=== PATIENT | male | born 1940 | race Caucasian/White ===

== ENCOUNTER → 2016-09-30 | Outpatient (CLI) | payer MEDICARE | LOC: RAD 08:20 | PROVIDERS: ATTEND Family Medicine | DX: I74.4 Embolism and thrombosis of arteries of extremities, unspecified (principal) | CPT/HCPCS: 76775 ==

== ENCOUNTER → 2017-03-20 | Outpatient (CLI) | payer MEDICARE ==
--- NOTE | 2017-03-20 12:37 | RADIOLOGY REPORT (SQ) ---
EXAM DESCRIPTION: VENOUS BILATERAL LOWER COMPLETED DATE/TIME: 03/20/2017 11:47 am REASON FOR STUDY: BLE EDEMA R60.9 EDEMA, UNSPECIFIED COMPARISON: Abdominal aorta ultrasound 09/30/2016 TECHNIQUE: Dynamic and static cai scale and color images acquired of both lower extremity venous sy stems. Selected spectral images acquired with additional compression and augmentation maneuvers. Imag es stored on PACS. LIMITATIONS: None. FINDINGS: RIGHT LEG COMMON FEMORAL AND FEMORAL: Normal phasicity, compression and augmentation. No visualized echogenic m aterial on cai scale. No defects on color images. POPLITEAL: Normal compression and augmentation. No visualized echogenic material on cai scale. No de fects on color images. CALF VESSELS: Normal compression and augmentation. No visualized echogenic material on cai scale. No defects on color image. GSV AND SSV: Normal compression. No visualized echogenic material on cai scale. No defects on color images. ANY DEEP VENOUS INSUFFICIENCY: Not evaluated. ANY EVIDENCE OF POPLITEAL CYST: No. OTHER: No other significant finding. LEFT LEG COMMON FEMORAL AND FEMORAL: Normal phasicity, compression and augmentation. No visualized echogenic m aterial on cai scale. No defects on color images. POPLITEAL: Normal compression and augmentation. No visualized echogenic material on aci scale. No de fects on color images. CALF VESSELS: Normal compression and augmentation. No visualized echogenic material on cai scale. No defects on color images. GSV AND SSV: Normal compression. No visualized echogenic material on cai scale. No defects on color images. ANY DEEP VENOUS INSUFFICIENCY: Not evaluated. ANY EVIDENCE POPLITEAL CYST: No. OTHER: No other significant finding. IMPRESSION: NO EVIDENCE DVT OR SVT IN EITHER LEG. Report called to Dr. Domingo TECHNICAL DOCUMENTATION: JOB ID: [id number] [employer]- All Rights Reserved
--- NOTE | 2017-03-20 14:30 | RADIOLOGY REPORT (SQ) ---
EXAM DESCRIPTION: DUPLEX ART/MENDEZ FLOW COMPLETE COMPLETED DATE/TIME: 03/20/2017 2:01 pm REASON FOR STUDY: EDEMA (R60.9) R60.9 EDEMA, UNSPECIFIED COMPARISON: None. TECHNIQUE: Realtime and static grayscale images acquired. Selected color Doppler, velocities and spe ctral images recorded. LIMITATIONS: None. FINDINGS: The right kidney measures 12 cm in length. No hydronephrosis or stones. A 2 cm midpole c yst and 1.7 cm parapelvic cyst are present. Normal right renal artery and vein flow on Doppler. The left kidney measures 10.3 cm in length. No hydronephrosis or stones. Trace renal cortical cysts are present, 3.4 cm in the upper pole, 1.6 cm in mid pole, 2.4 cm in the mid to lower pole. Normal left renal artery and vein flow on Doppler. Normal inferior vena cava flow on Doppler. BLADDER: Normal. OTHER: No other significant finding. IMPRESSION: No ultrasound evidence of renal vein or inferior vena cava thrombosis Normal size kidneys with bilateral renal cortical cysts. COMMENT: Report called to Dr Domingo TECHNICAL DOCUMENTATION: JOB ID: [id number] [employer]- All Rights Reserved
== END ==
LOC: SP 11:07
PROVIDERS: ATTEND Family Medicine
DX: R60.9 Edema, unspecified (principal)
CPT/HCPCS: 93970; 93975

== ENCOUNTER → 2018-11-17 | Outpatient (CLI) | payer MEDICARE ==
--- NOTE | 2018-11-17 17:16 | RADIOLOGY REPORT (SQ) ---
EXAM DESCRIPTION: L SPINE W/FLEX/EXT COMPLETED DATE/TIME: 11/17/2018 4:52 pm REASON FOR STUDY: LBP COMPARISON: None. NUMBER OF VIEWS: 7 views TECHNIQUE: AP, oblique, and lateral sacral views were obtained. Lateral views were obtained in neut ral, flexion, and extension. LIMITATIONS: None. FINDINGS: MINERALIZATION: Normal. SEGMENTATION: Normal. No transitional anatomy. ALIGNMENT: Scoliosis. FLEXION/EXTENSION: No instability. VERTEBRAE: Maintained height. No fracture or worrisome bone lesion. DISCS: All the disc spaces are narrowed. Marginal osteophytes are present throughout the lumbar spin e. POSTERIOR ELEMENTS: Hypertrophic facet changes are present throughout the lumbar spine. HARDWARE: None in the spine. OTHER: No other significant finding. IMPRESSION: Scoliosis, degenerative disc disease, spondylosis, and facet arthropathy. No acute find ing. No instability on flexion and extension. TECHNICAL DOCUMENTATION: JOB ID: [id number] [employer]- All Rights Reserved Reading location - IP/workstation name: [email or web address]
== END ==
LOC: RAD 16:24
PROVIDERS: ATTEND Anesthesiology Pain Medicine
DX: M54.5 Low back pain (principal)
CPT/HCPCS: 72114

== ENCOUNTER 2020-01-26 15:48 | Emergency (ER) | payer MEDICARE ==
[2020-01-26] MEDS ORDERED: ASPIRIN 81 MG TABLET, CHEWABLE PO ONE (16:43)
--- NOTE | 2020-01-26 16:46 | ER Document Report ---
ED Medical Screen (RME) - General Chief Complaint: Chest Pain Stated Complaint: CHEST PAIN Time Seen by Provider: 01/26/20 16:43 Primary Care Provider: SOPHIA TORRES MD [Primary Care Provider] - Follow up as needed Mode of Arrival: Ambulatory Information source: Patient Notes: Male presented to ED for chest pain x3 days. He states he called his primary doctor to see him about a crick in his neck and when he told him that he been having chest pain for the last 3 days they sent him to the emergency room. He does have a history of high blood pressure and cholesterol. He states he does not smoke drink or use any drugs. He states that sometimes the chest pain goes down the left arm but right now is just right into his left chest. He states it is level 3 out of 5 at this time. States he did take 1 81 mg aspirin this morning and we will treat him with formal. I have greeted and performed a rapid initial assessment of this patient. A comprehensive ED assessment and evaluation of the patient, analysis of test results and completion of medical decision making process will be conducted by an additional ED providers. TRAVEL OUTSIDE OF THE [place] IN LAST 30 DAYS: No - Related Data Allergies/Adverse Reactions: codeine Allergy (Verified 01/26/20 16:40) Penicillins Allergy (Verified 01/26/20 16:40) Physical Exam - Vital signs Vitals: Temp Pulse Resp BP Pulse Ox 98.2 F 84 20 132/68 H 95 01/26/20 15:59 01/26/20 15:59 01/26/20 15:59 01/26/20 15:59 01/26/20 15:59 Course - Vital Signs Vital signs: Temp Pulse Resp BP Pulse Ox 98.2 F 84 20 132/68 H 95 01/26/20 15:59 01/26/20 15:59 01/26/20 15:59 01/26/20 15:59 01/26/20 15:59 Doctor's Discharge - Discharge Referrals: SOPHIA TORRES MD [Primary Care Provider] - Follow up as needed
--- NOTE | 2020-01-26 17:04 | RADIOLOGY REPORT (SQ) ---
EXAM DESCRIPTION: CHEST 2 VIEWS IMAGES COMPLETED DATE/TIME: 01/26/2020 4:55 pm REASON FOR STUDY: Chest pain sometimes goes down the arm not now COMPARISON: None. EXAM PARAMETERS: NUMBER OF VIEWS: two views TECHNIQUE: Digital Frontal and Lateral radiographic views of the chest acquired. RADIATION DOSE: NA LIMITATIONS: none FINDINGS: LUNGS AND PLEURA: No opacities, masses or pneumothorax. No pleural effusion. MEDIASTINUM AND HILAR STRUCTURES: No masses or contour abnormalities. HEART AND VASCULAR STRUCTURES: Heart normal size. No evidence for failure. BONES: No acute findings. HARDWARE: None in the chest. OTHER: No other significant finding. IMPRESSION: NO ACUTE RADIOGRAPHIC FINDING IN THE CHEST. TECHNICAL DOCUMENTATION: JOB ID: [id number] [employer]- All Rights Reserved Reading location - IP/workstation name: [email or web address]
[2020-01-26 17:20] LABS: ABSOLUTE BASOPHILS # (AUTO) 0.1 10^3/uL (0.0-0.2); ABSOLUTE EOSINOPHILS # (AUTO) 0.3 10^3/uL (0.0-0.6); ABSOLUTE LYMPHOCYTES (AUTO) 2.7 10^3/uL (0.5-4.7); ABSOLUTE MONOCYTES (AUTO) 0.8 10^3/uL (0.1-1.4); ABSOLUTE NEUT (AUTO) 4.3 10^3/uL (1.7-8.2); EOSINOPHILS % (AUTO) 3.3 % (0-6); HEMATOCRIT 35.7 % (37.9-51.0); HEMOGLOBIN 12.3 g/dL (13.5-17.0); LYMPHOCYTES % (AUTO) 33.2 % (13-45); MEAN CORPUSCULAR HEMOGLOBIN 28.3 pg (27.0-33.4); MEAN CORPUSCULAR HGB CONC 34.4 g/dL (32.0-36.0); MEAN CORPUSCULAR VOLUME 82 fl (80-97); MONOCYTES % (AUTO) 9.4 % (3-13); PLATELET COUNT 272 10^3/uL (150-450); RED BLOOD COUNT 4.33 10^6/uL (4.35-5.55); RED CELL DISTRIBUTION WIDTH 13.4 % (11.5-14.0); SEGMENTED NEUTROPHILS % (AUTO) 53.1 % (42-78); TOTAL CELLS COUNTED % (AUTO) 100 %; WHITE BLOOD COUNT 8.1 10^3/uL (4.0-10.5)
[2020-01-26 17:28] LABS: INTERNATIONAL RATION (INR) 1.07; PROTHROMBIN TIME 13.9 SEC (11.4-15.4)
[2020-01-26 17:29] LABS: PARTIAL THROMBOPLASTIN TIME 30.5 SEC (23.5-35.8)
[2020-01-26 17:38] LABS: ALBUMIN 4.2 g/dL (3.5-5.0); ALKALINE PHOSPHATASE 84 U/L (38-126); ANION GAP 9 (5-19); ASPARTATE AMINO TRANSFERASE 23 U/L (17-59); BILIRUBIN,TOTAL 0.5 mg/dL (0.2-1.3); BLOOD UREA NITROGEN 15 mg/dL (7-20); CALCIUM 9.3 mg/dL (8.4-10.2); CARBON DIOXIDE 27 mmol/L (22-30); CHLORIDE 102 mmol/L (98-107); CREATINE KINASE 128 U/L (55-170); GLUCOSE 110 mg/dL (75-110); POTASSIUM 4.2 mmol/L (3.6-5.0); TOTAL PROTEIN 7.7 g/dL (6.3-8.2)
--- NOTE | 2020-01-26 18:23 | EKG REPORT ---
SEVERITY:- ABNORMAL ECG - SINUS RHYTHM MULTIFORM VENTRICULAR PREMATURE COMPLEXES RIGHT BUNDLE BRANCH BLOCK : Confirmed by: Edilberto Vasquez MD 26-Jan-2020 18:22:23
--- NOTE | 2020-01-26 20:03 | ER Document Report ---
ED General - General Chief Complaint: Chest Pain Stated Complaint: CHEST PAIN Time Seen by Provider: 01/26/20 16:43 Primary Care Provider: SOPHIA TORRES MD [NO LOCAL MD] - Follow up as needed Mode of Arrival: Ambulatory Information source: Patient Notes: 01/26/20 16:41 - ED Nursing Note by MARITZA RODRIGUEZ [facility]ly [facility] Num: [id number] : 1940 Patient Age: 79 Patient presents to the ED with complaint of CP x 3 days. Patient reports PCP referred him to ED for evaluation. Patient reports pain has been intermittent x several years. Patient reports feeling of neck pain on L side in addition to CP. Patient reports hx of HTN, denies previous PR/Stroke. Denies difficulty breathing/SOB. Patient reports pain is L sided, intermittently radiating into L arm. Patient reports pain 3/5 at this time, describes as dull, aching, pressure. Patient is Aox4 with even and unlabored respirations, speaking in clear and complete sentences, nad noted. Ambulatory with even and steady gait. Initialized on 01/26/20 16:41 - END OF NOTE Marcia notes Male presented to ED for chest pain x3 days. He states he called his primary doctor to see him about a crick in his neck and when he told him that he been having chest pain for the last 3 days they sent him to the emergency room. He does have a history of high blood pressure and cholesterol. He states he does not smoke drink or use any drugs. He states that sometimes the chest pain goes down the left arm but right now is just right into his left chest. He states it is level 3 out of 5 at this time. States he did take 1 81 mg aspirin this morning and we will treat him with formal. my notes 79-year-old male arrives by POV with chief complaint of chest pain for least 2 to 3 weeks. He reports the chest pain is worse over the last 3 days. He reports referral to his left lateral neck and left arm. His troponin and CPK are normal. His creatinine is 1.6 BUN is normal electrolytes and other labs chemistries are normal. He has a 12 hemoglobin and white count is normal. Chest x-ray NAD. The patient's EKG shows sinus rhythm at 89 bpm with multiform PVCs and right bundle branch block. I discussed this case with Dr. Denton and he advises calling his office tomorrow for outpatient work-up. This was call was at around 9 TRAVEL OUTSIDE OF THE [place] IN LAST 30 DAYS: No - HPI Onset: Other - x 2-3 weeks Onset/Duration: Persistent Quality of pain: Achy Severity: Mild Pain Level: 1 Associated symptoms: Chest pain Exacerbated by: Denies Relieved by: Denies Similar symptoms previously: No Recently seen / treated by doctor: No - Related Data Allergies/Adverse Reactions: codeine Allergy (Verified 01/26/20 18:29) Penicillins Allergy (Verified 01/26/20 18:29) Home Medications: aspirin, atrovastatin, lasix, levothyroxine, losartan, pantoprazole, requip, remadol. Past Medical History - General Information source: Patient - Social History Smoking Status: Never Smoker Cigarette use (# per day): No Chew tobacco use (# tins/day): No Smoking Education Provided: No Frequency of alcohol use: Rare Drug Abuse: None Lives with: Alone Family History: Reviewed & Not Pertinent Patient has suicidal ideation: No Patient has homicidal ideation: No - Past Medical History Cardiac Medical History: Reports: Hx Atrial Fibrillation GI Medical History: Reports: Hx Gastroesophageal Reflux Disease Past Surgical History: Reports: Hx Orthopedic Surgery - back surgery, knee repl Review of Systems - Review of Systems Constitutional: No symptoms reported EENT: No symptoms reported Cardiovascular: Chest pain Respiratory: No symptoms reported Gastrointestinal: No symptoms reported Genitourinary: No symptoms reported Male Genitourinary: No symptoms reported Musculoskeletal: No symptoms reported Skin: No symptoms reported Hematologic/Lymphatic: No symptoms reported Neurological/Psychological: No symptoms reported Physical Exam - Vital signs Vitals: Temp Pulse Resp BP Pulse Ox 98.2 F 84 20 132/68 H 95 01/26/20 15:59 01/26/20 15:59 01/26/20 15:59 01/26/20 15:59 01/26/20 15:59 Interpretation: Normal - General General appearance: Appears well - HEENT Head: Normocephalic, Atraumatic Eyes: Normal Pupils: PERRL Mouth/Lips: Normal Mucous membranes: Normal Pharynx: Normal Neck: Normal - Respiratory Respiratory status: No respiratory distress Chest status: Nontender Breath sounds: Normal Chest palpation: Normal - Cardiovascular Rhythm: Irregularly irregular Heart sounds: Normal auscultation Murmur: No - With EKG with multiformed ventricular PVCs - Abdominal Inspection: Normal Distension: No distension Bowel sounds: Normal Tenderness: Nontender Organomegaly: No organomegaly - Rectal Prostate: Other - deferred - Genitourinary Scrotum: Other - deferred - Back Back: Normal - Extremities General upper extremity: Normal inspection General lower extremity: Normal inspection - Neurological Neuro grossly intact: Yes Cognition: Normal Orientation: AAOx4 [place] Coma Scale Eye Opening: Spontaneous [place] Coma Scale Verbal: Oriented [place] Coma Scale Motor: Obeys Commands [place] Coma Scale Total: 15 Speech: Normal Motor strength normal: LUE, RUE, LLE, RLE Sensory: Normal - Psychological Associated symptoms: Normal affect - Skin Skin Temperature: Warm Skin Moisture: Dry Course - Vital Signs Vital signs: Temp Pulse Resp BP Pulse Ox 98.2 F 84 20 132/68 H 96 01/26/20 15:59 01/26/20 15:59 01/26/20 15:59 01/26/20 15:59 01/26/20 18:40 - Laboratory Result Diagrams: 01/26/20 17:05 01/26/20 17:05 Laboratory results interpreted by me: 01/26/20 01/26/20 17:05 17:05 RBC 4.33 L Hgb 12.3 L Hct 35.7 L Creatinine 1.59 H Est GFR ( Amer) 51 L Est GFR (MDRD) Non-Af 42 L - Diagnostic Test Radiology reviewed: Reports reviewed - EKG Interpretation by Nd EKG shows normal: Sinus rhythm Rhythm: Other - Multiformed PVCs right bundle branch block Critical Care Note - Critical Care Note Comments: I discussed this case with Dr. Denton and he advises following up in his office call the office tomorrow. Patient's information was given to Dr. Denton for name and for birthdate. Discharge - Discharge Clinical Impression: Angina at rest Condition: Good Disposition: HOME, SELF-CARE Additional Instructions: Follow-up with Dr. Denton child care team lead call his office tomorrow a number will be provided on this page. He also has your name and birthdate Referrals: SOPHIA TORRES MD [NO LOCAL MD] - Follow up as needed QUINTIN DENTON MD [ACTIVE STAFF] - Follow up as needed
[2020-01-26 23:02] VITALS: BP 148/90
== END 2020-01-26 23:02 | disposition home or self-care (01) ==
LOC: ER 15:48
DX: I20.9 Angina pectoris, unspecified (principal); M54.2 Cervicalgia; I10 Essential (primary) hypertension; I49.3 Ventricular premature depolarization; I45.10 Unspecified right bundle-branch block; E78.00 Pure hypercholesterolemia, unspecified; K21.9 Gastro-esophageal reflux disease without esophagitis; Z79.899 Other long term (current) drug therapy; Z79.82 Long term (current) use of aspirin; Z88.6 Allergy status to analgesic agent; Z88.5 Allergy status to narcotic agent; Z88.0 Allergy status to penicillin
CPT/HCPCS: 93005; 99285; 36415; 82550; 83735; 85025; 85610; 85730; 80053; 84484; 71046; 93010; A9270

== ENCOUNTER 2020-07-09 15:27 | Emergency (ER) | payer MEDICARE ==
[2020-07-09 16:37] VITALS: BP 139/58
--- NOTE | 2020-07-09 17:15 | ER Document Report ---
ED Medical Screen (RME) - General Chief Complaint: Leg Swelling Stated Complaint: LEG PAIN Time Seen by Provider: 07/09/20 17:09 Primary Care Provider: QUINTIN DENTON MD [Primary Care Provider] - Follow up as needed Mode of Arrival: Ambulatory Information source: Patient Notes: 80-year-old male presented to ED for complaint of left leg and swelling and discoloration. He states he is a patient of Dr. Leticia Ayers. He states he was in here recently for heart trouble and there was nothing wrong except for his normal high blood pressure and cholesterol. He states he is a former smoker does not smoke now does not drink does not use any drugs. Does not have any history of blood clots. I have greeted and performed a rapid initial assessment of this patient. A comprehensive ED assessment and evaluation of the patient, analysis of test results and completion of medical decision making process will be conducted by an additional ED providers. TRAVEL OUTSIDE OF THE [place] IN LAST 30 DAYS: No - Related Data Allergies/Adverse Reactions: codeine Allergy (Verified 01/26/20 18:29) Penicillins Allergy (Verified 01/26/20 18:29) Past Medical History - Past Medical History Cardiac Medical History: Reports: Hx Atrial Fibrillation GI Medical History: Reports: Hx Gastroesophageal Reflux Disease Past Surgical History: Reports: Hx Orthopedic Surgery - back surgery, knee repl Physical Exam - Vital signs Vitals: Temp Pulse Resp BP Pulse Ox 98.5 F 80 20 139/58 H 97 07/09/20 16:33 07/09/20 16:33 07/09/20 16:33 07/09/20 16:33 07/09/20 16:33 Course - Vital Signs Vital signs: Temp Pulse Resp BP Pulse Ox 98.5 F 80 20 139/58 H 97 07/09/20 16:33 07/09/20 16:33 07/09/20 16:33 07/09/20 16:33 07/09/20 16:33 Doctor's Discharge - Discharge Referrals: QUINTIN DENTON MD [Primary Care Provider] - Follow up as needed
[2020-07-09 17:46] LABS: ABSOLUTE BASOPHILS # (AUTO) 0.1 10^3/uL (0.0-0.2); ABSOLUTE EOSINOPHILS # (AUTO) 0.4 10^3/uL (0.0-0.6); ABSOLUTE LYMPHOCYTES (AUTO) 2.4 10^3/uL (0.5-4.7); ABSOLUTE NEUT (AUTO) 4.8 10^3/uL (1.7-8.2); BASOPHILS % (AUTO) 0.6 % (0-2); EOSINOPHILS % (AUTO) 4.5 % (0-6); HEMATOCRIT 31.9 % (37.9-51.0); HEMOGLOBIN 11.3 g/dL (13.5-17.0); LYMPHOCYTES % (AUTO) 27.7 % (13-45); MEAN CORPUSCULAR HEMOGLOBIN 29.2 pg (27.0-33.4); MEAN CORPUSCULAR HGB CONC 35.6 g/dL (32.0-36.0); MEAN CORPUSCULAR VOLUME 82 fl (80-97); MONOCYTES % (AUTO) 11.3 % (3-13); PLATELET COUNT 233 10^3/uL (150-450); RED BLOOD COUNT 3.89 10^6/uL (4.35-5.55); RED CELL DISTRIBUTION WIDTH 13.8 % (11.5-14.0); SEGMENTED NEUTROPHILS % (AUTO) 55.9 % (42-78); TOTAL CELLS COUNTED % (AUTO) 100 %; WHITE BLOOD COUNT 8.6 10^3/uL (4.0-10.5)
[2020-07-09 17:48] LABS: INTERNATIONAL RATION (INR) 0.99
[2020-07-09 17:51] LABS: PROTHROMBIN TIME 13.3 SEC (11.4-15.4)
[2020-07-09 18:07] LABS: ALBUMIN 4.2 g/dL (3.5-5.0); ALKALINE PHOSPHATASE 77 U/L (38-126); ANION GAP 6 (5-19); ASPARTATE AMINO TRANSFERASE 23 U/L (17-59); BILIRUBIN,DIRECT 0.1 mg/dL (0.0-0.4); BILIRUBIN,TOTAL 0.4 mg/dL (0.2-1.3); BLOOD UREA NITROGEN 26 mg/dL (7-20); CALCIUM 9.3 mg/dL (8.4-10.2); CARBON DIOXIDE 30 mmol/L (22-30); CHLORIDE 102 mmol/L (98-107); GLUCOSE 106 mg/dL (75-110); POTASSIUM 4.4 mmol/L (3.6-5.0); TOTAL PROTEIN 7.5 g/dL (6.3-8.2)
--- NOTE | 2020-07-09 19:24 | RADIOLOGY REPORT (SQ) ---
EXAM DESCRIPTION: VENOUS UNILATERAL LOWER IMAGES COMPLETED DATE/TIME: 07/09/2020 7:13 pm REASON FOR STUDY: Increased swelling left leg discoloration left leg COMPARISON: None. TECHNIQUE: Dynamic and static cai scale and color images acquired of the left leg venous system. Se lected spectral images acquired with additional compression and augmentation maneuvers. The contralat eral common femoral vein and saphenofemoral junction were also imaged. Images stored on PACS. LIMITATIONS: None. FINDINGS: COMMON FEMORAL: Normal phasicity, compression and augmentation. No visualized echogenic ma terial on cai scale. No defects on color images. FEMORAL: Normal compression and augmentation. No visualized echogenic material on cai scale. No defe cts on color images. POPLITEAL: Normal compression, augmentation. No visualized echogenic material on cai scale. No defec ts on color images. CALF VESSELS: Normal compression, augmentation. No visualized echogenic material on cai scale. No de fects on color images. Peroneal veins not seen. GSV and SSV: Normal compression, augmentation. No visualized echogenic material on cai scale. No def ects on color images. ANY DEEP VENOUS INSUFFICIENCY: Not evaluated. ANY EVIDENCE OF POPLITEAL CYST: No. OTHER: No other significant finding. CONTRALATERAL COMMON FEMORAL VEIN AND SAPHENOFEMORAL JUNCTION: Normal phasicity, compression and augmentation. No visualized echogenic material on cai scale. No de fects on color images. IMPRESSION: NO EVIDENCE DVT OR SVT IN THE LEFT LEG. TECHNICAL DOCUMENTATION: JOB ID: [id number] [employer]- All Rights Reserved Reading location - IP/workstation name: [email or web address]
== END 2020-07-09 20:26 | disposition left against medical advice (07) ==
LOC: ER 15:27
DX: M79.89 Other specified soft tissue disorders (principal); I10 Essential (primary) hypertension; Z87.891 Personal history of nicotine dependence; Z88.6 Allergy status to analgesic agent; Z88.5 Allergy status to narcotic agent; Z88.0 Allergy status to penicillin; Z53.20 Procedure and treatment not carried out because of patient's decision for unspecified reasons
CPT/HCPCS: 36415; 80053; 85025; 85610; 93971; 99284